=== PATIENT | female | born 1960 | race Caucasian/White ===

== ENCOUNTER 2020-08-28 21:00 | Emergency (ER) | payer OTHER ==
[2020-08-29 00:06] LABS: #Basophils 0.1 10x3/uL (0.0-0.2); #Eosinphils 0.6 10x3/uL (0.0-0.5); #Monocytes 1.2 10x3/uL (0.0-1.1); #Neutrophils 7.2 10x3/uL (1.5-8.4); %Basophils 0.6 % (0.0-2.0); %Eosinophils 5.8 % (0.0-6.0); %Lymphocytes 14.2 % (18.0-47.0); %Monocytes 11.2 % (0.0-10.0); %Neutrophils 66.7 % (40.0-75.0); Hemoglobin 12.8 g/dL (12.0-15.5); Mean Corpuscular HGB CONC 32.8 g/dL (32.0-36.0); Mean Corpuscular Hemoglobin 27.8 pg (27.0-33.0); Mean Corpuscular Volume 84.8 fl (81.6-98.3); Mean Platelet Volume 10.4 fl (7.4-10.4); Platelet Count 357 10x3/uL (150-450); RBC Distribution Width 13.8 % (11.5-14.5); White Blood Cell (WBC) Count 10.8 10x3/uL (3.5-10.5)
[2020-08-29 00:12] LABS: ALT (SGPT) 11 U/L (8-55); AST (SGOT) 23 U/L (5-34); Albumin 4.4 g/dL (3.4-4.8); Alkaline Phosphatase 160 U/L (40-110); Anion Gap 15 mmol/L (10-20); BUN (Urea Nitrogen) 19 mg/dL (9.8-20.1); Bilirubin, Total 0.4 mg/dL (0.2-1.2); Calc. Creatinine Clearance 0 mL/min (70-130); Calcium 9.7 mg/dL (7.8-10.44); Carbon Dioxide 26 mmol/L (23-31); Chloride 101 mmol/L (98-107); Globulin 3.6 g/dL (2.4-3.5); Glucose 100 mg/dL (80-115); Sodium 138 mmol/L (136-145)
[2020-08-29] MEDS ORDERED: Cefepime 2 GM VIAL ONE (00:47)
[2020-08-29] MEDS ORDERED: Ketorolac Tromethamine 30 MG/ML VIAL ONE (00:51)
== END 2020-08-29 01:32 | disposition home or self-care (01) ==
LOC: CSHERS 21:00
DX: L03.113 Cellulitis of right upper limb (principal); E03.9 Hypothyroidism, unspecified; K58.9 Irritable bowel syndrome, unspecified; F17.210 Nicotine dependence, cigarettes, uncomplicated; Z79.899 Other long term (current) drug therapy
CPT/HCPCS: 80053; 83605; 85025; 87040; 87086; 96365; 96375; J0692; J1885

== ENCOUNTER 2020-09-14 06:43 | Inpatient (IN) | payer OTHER ==
[2020-09-14] MEDS ORDERED: Cefepime 2 GM VIAL ONE (07:20)
[2020-09-14 08:31] LABS: #Monocytes 0.4 10x3/uL (0.0-1.1); #Neutrophils 4.9 10x3/uL (1.5-8.4); %Basophils 0.5 % (0.0-2.0); %Eosinophils 0.5 % (0.0-6.0); %Lymphocytes 10.4 % (18.0-47.0); %Monocytes 6.8 % (0.0-10.0); %Neutrophils 81.3 % (40.0-75.0); Hemoglobin 12.1 g/dL (12.0-15.5); Mean Corpuscular HGB CONC 32.3 g/dL (32.0-36.0); Mean Corpuscular Hemoglobin 27.8 pg (27.0-33.0); Mean Platelet Volume 11.5 fl (7.4-10.4); Platelet Count 255 10x3/uL (150-450); RBC Distribution Width 13.1 % (11.5-14.5); Red Blood Cell (RBC) Count 4.36 10x6/uL (3.90-5.03)
[2020-09-14 08:37] LABS: ALT (SGPT) 6 U/L (8-55); AST (SGOT) 17 U/L (5-34); Alkaline Phosphatase 126 U/L (40-110); Anion Gap 16 mmol/L (10-20); BUN (Urea Nitrogen) 19 mg/dL (9.8-20.1); Bilirubin, Total 0.5 mg/dL (0.2-1.2); Calc. Creatinine Clearance 0 mL/min (70-130); Calcium 9.8 mg/dL (7.8-10.44); Carbon Dioxide 24 mmol/L (23-31); Chloride 103 mmol/L (98-107); Globulin 3.7 g/dL (2.4-3.5); Glucose 115 mg/dL (80-115); Potassium 4.3 mmol/L (3.5-5.1); Protein, Total 7.7 g/dL (5.8-8.1); Sodium 139 mmol/L (136-145)
[2020-09-14] MEDS ORDERED: Lidocaine 1% w/Epinephrine 1:100K 20 ML VIAL ONE (08:37)
[2020-09-14] MEDS ORDERED: Morphine 4 MG/ML VIAL ONE (10:08)
[2020-09-14] MEDS ORDERED: Ondansetron PF 4 MG/2 ML Vial ONE (10:09)
[2020-09-14] MEDS ORDERED: Ondansetron PF 4 MG/2 ML Vial IVP PRN (10:44)
[2020-09-14] MEDS ORDERED: Acetaminophen 325 MG TAB PO PRN (10:44)
[2020-09-14] MEDS ORDERED: Loratadine 10 MG TAB PO PRN (10:44)
[2020-09-14] MEDS ORDERED: Calcium Carbonate 500 MG ChewTAB PO PRN (10:44)
[2020-09-14] MEDS ORDERED: Guaifenesin DM 100-10/5 ML UDCUP PO PRN (10:44)
[2020-09-14] MEDS ORDERED: Loperamide HCl 2 MG CAP PO PRN (10:44)
[2020-09-14] MEDS ORDERED: Sodium Chloride 0.65% Nasal 44 ML BOT EA NARE PRN (10:44)
[2020-09-14] MEDS ORDERED: Bisacodyl 10 MG SUPP PR PRN (10:44)
[2020-09-14] MEDS ORDERED: Senokot S 8.6-50 MG TAB PO PRN (10:44)
[2020-09-14] MEDS ORDERED: hydrALAZINE 20 MG/ML VIAL SLOW IVP PRN (10:44)
[2020-09-14] MEDS ORDERED: Cepastat Lozenges 1 LOZ PO PRN (10:44)
[2020-09-14 12:23] VITALS: BMI 28.3
[2020-09-14] MEDS: HYDROcodone/Acetaminophen 5/325 mg Tablet PO PRN ×3 (12:31→22:30)
[2020-09-14] MEDS: cefTRIAXone\\ROCEPHIN 1 GM in Sodium Chloride 0.9% 100 ML IVPB SCH (14:44)
[2020-09-14] MEDS ORDERED: Vancomycin HCl 500 MG in Sodium Chloride 0.9% 100 ML IVPB SCH (15:00)
[2020-09-14] MEDS: Ondansetron ODT 4 MG TAB PO PRN ×2 (18:12→22:30)
[2020-09-14 19:18] LABS: SARS-CoV-2 PCR by NAA Not Detected (NotDetected)
[2020-09-14] MEDS: Famotidine 20 MG TAB PO SCH (20:22)
[2020-09-14] MEDS: Zolpidem Tartrate 5 MG TAB PO PRN (23:37)
[2020-09-15] MEDS: HYDROcodone/Acetaminophen 5/325 mg Tablet PO PRN ×2 (04:04→13:49)
[2020-09-15 05:23] LABS: Anion Gap 13 mmol/L (10-20); BUN (Urea Nitrogen) 19 mg/dL (9.8-20.1); CRP (Inflammatory) Less than 0.50 mg/dL (= or < 0.5); Calc. Creatinine Clearance 59 mL/min (70-130); Carbon Dioxide 29 mmol/L (23-31); Chloride 103 mmol/L (98-107); Glucose 88 mg/dL (80-115); Potassium 4.5 mmol/L (3.5-5.1); Sodium 140 mmol/L (136-145)
[2020-09-15 05:40] LABS: #Eosinphils 0.2 10x3/uL (0.0-0.5); #Monocytes 0.9 10x3/uL (0.0-1.1); #Neutrophils 7.5 10x3/uL (1.5-8.4); %Basophils 0.4 % (0.0-2.0); %Eosinophils 1.6 % (0.0-6.0); %Lymphocytes 8.6 % (18.0-47.0); %Monocytes 9.7 % (0.0-10.0); %Neutrophils 79.4 % (40.0-75.0); Hemoglobin 11.4 g/dL (12.0-15.5); Mean Corpuscular HGB CONC 32.1 g/dL (32.0-36.0); Mean Corpuscular Volume 87.2 fl (81.6-98.3); Mean Platelet Volume 10.3 fl (7.4-10.4); Platelet Count 367 10x3/uL (150-450); RBC Distribution Width 13.1 % (11.5-14.5); Red Blood Cell (RBC) Count 4.07 10x6/uL (3.90-5.03); White Blood Cell (WBC) Count 9.4 10x3/uL (3.5-10.5)
[2020-09-15] MEDS ORDERED: traMADol HCl 50 MG TAB PO PRN (08:48)
[2020-09-15] MEDS ORDERED: hydrOXYzine 25 MG TAB PO PRN (08:48)
[2020-09-15] MEDS ORDERED: Cyclobenzaprine 10 MG TAB PO PRN (08:48)
[2020-09-15] MEDS ORDERED: Fluticasone Propionate Nasal Spray 16 gm Bottle NASAL SCH (10:00)
[2020-09-15] MEDS ORDERED: busPIRone HCl 15 MG TAB PO SCH (10:00)
[2020-09-15] MEDS ORDERED: FLUoxetine HCl 20 MG CAP PO SCH (10:00)
[2020-09-15] MEDS: Famotidine 20 MG TAB PO SCH ×2 (10:03→20:05)
[2020-09-15] MEDS: Ondansetron ODT 4 MG TAB PO PRN (10:04)
[2020-09-15] MEDS: Enoxaparin Sodium 40 MG/0.4 ML SYRINGE SC SCH (10:05)
[2020-09-15] MEDS: Vancomycin HCl 1 GM in Sodium Chloride 0.9% 250 ML 250 ML IVPB SCH (10:05)
[2020-09-15] MEDS: Morphine 4 MG/ML VIAL SLOW IVP PRN ×2 (10:06→17:28)
[2020-09-15] MEDS: cefTRIAXone\\ROCEPHIN 1 GM in Sodium Chloride 0.9% 100 ML IVPB SCH (12:35)
[2020-09-15] MEDS: Prazosin HCl 1 MG CAP PO SCH (20:06)
[2020-09-15] MEDS: Zolpidem Tartrate 5 MG TAB PO PRN (20:06)
[2020-09-15] MEDS: busPIRone HCl 15 MG TAB PO SCH (20:06)
[2020-09-15] MEDS: Bupropion 150 MG SR TAB PO SCH (20:06)
[2020-09-16] MEDS: Morphine 4 MG/ML VIAL SLOW IVP PRN ×5 (02:48→22:54)
[2020-09-16] MEDS: Vancomycin HCl 1 GM in Sodium Chloride 0.9% 250 ML 250 ML IVPB SCH ×2 (03:18→20:44)
[2020-09-16] MEDS: Famotidine 20 MG TAB PO SCH ×2 (08:33→20:44)
[2020-09-16] MEDS: busPIRone HCl 15 MG TAB PO SCH ×2 (08:33→20:43)
[2020-09-16] MEDS: Enoxaparin Sodium 40 MG/0.4 ML SYRINGE SC SCH (08:33)
[2020-09-16] MEDS: Fluticasone Propionate Nasal Spray 16 gm Bottle NASAL SCH (08:34)
[2020-09-16] MEDS: FLUoxetine HCl 20 MG CAP PO SCH (08:34)
[2020-09-16] MEDS: cefTRIAXone\\ROCEPHIN 1 GM in Sodium Chloride 0.9% 100 ML IVPB SCH (11:44)
[2020-09-16] MEDS: Prazosin HCl 1 MG CAP PO SCH (20:43)
[2020-09-16] MEDS: Bupropion 150 MG SR TAB PO SCH (20:43)
[2020-09-16] MEDS: Zolpidem Tartrate 5 MG TAB PO PRN (20:43)
[2020-09-17] MEDS: Morphine 4 MG/ML VIAL SLOW IVP PRN ×2 (05:11→09:00)
[2020-09-17] MEDS: Fluticasone Propionate Nasal Spray 16 gm Bottle NASAL SCH (08:46)
[2020-09-17] MEDS: Enoxaparin Sodium 40 MG/0.4 ML SYRINGE SC SCH (08:46)
[2020-09-17] MEDS: FLUoxetine HCl 20 MG CAP PO SCH (08:46)
[2020-09-17] MEDS: Famotidine 20 MG TAB PO SCH (10:52)
[2020-09-17] MEDS: busPIRone HCl 15 MG TAB PO SCH (10:53)
[2020-09-17 12:25] VITALS: BP 123/71; TEMP 98.2
== END 2020-09-17 12:41 | disposition home or self-care (01) | DRG 558 ==
LOC: CSHERS 06:43 → CSHTELE 09:57
PROVIDERS: ADMIT Internal Medicine; ATTEND Internal Medicine
DX: M70.21 Olecranon bursitis, right elbow (principal); Z20.822 Contact with and (suspected) exposure to COVID-19; E03.9 Hypothyroidism, unspecified; K58.9 Irritable bowel syndrome, unspecified; Z90.710 Acquired absence of both cervix and uterus; F17.210 Nicotine dependence, cigarettes, uncomplicated; Z78.9 Other specified health status; N18.31 Chronic kidney disease, stage 3a; F41.9 Anxiety disorder, unspecified; F32.9 Major depressive disorder, single episode, unspecified; Z79.899 Other long term (current) drug therapy
CPT/HCPCS: 36415; 80048; 80053; 83605; 85025; 85652; 86140; 87070; 87205; 87635; 94760; 96365; 96375; J0690; J0692; J0696; J1650; J2270; J2405; J3370; J3490; J7050; Q0162; U0003; U0005

== ENCOUNTER 2021-05-25 11:12 | Emergency (ER) | payer OTHER ==
[2021-05-25] MEDS ORDERED: Ketorolac Tromethamine 30 MG/ML VIAL ONE (12:21)
[2021-05-25] MEDS ORDERED: Morphine 4 MG/ML VIAL ONE (13:39)
== END 2021-05-25 14:03 | disposition home or self-care (01) ==
LOC: CSHERS 11:12
DX: S92.351A Displaced fracture of fifth metatarsal bone, right foot, initial encounter for closed fracture (principal); S09.90XA Unspecified injury of head, initial encounter; W22.8XXA Striking against or struck by other objects, initial encounter; E03.9 Hypothyroidism, unspecified; F17.210 Nicotine dependence, cigarettes, uncomplicated
CPT/HCPCS: 70450; 96372; J1885; J2270

== ENCOUNTER 2022-04-21 08:29 | Emergency (ER) | payer OTHER ==
[2022-04-21] MEDS ORDERED: Ketorolac Tromethamine 30 MG/ML VIAL ONE (09:25)
[2022-04-21] MEDS ORDERED: diphenhydrAMINE 25 MG CAP ONE (10:33)
== END 2022-04-21 11:35 | disposition home or self-care (01) ==
LOC: CSHERS 08:29
DX: M25.511 Pain in right shoulder (principal); E03.9 Hypothyroidism, unspecified; F17.210 Nicotine dependence, cigarettes, uncomplicated
CPT/HCPCS: 93005; 96372; J1885

== ENCOUNTER 2022-09-13 08:55 | Emergency (ER) | payer OTHER ==
[2022-09-13] MEDS ORDERED: Morphine 4 MG/ML VIAL ONE (11:06)
[2022-09-13] MEDS ORDERED: Ketorolac Tromethamine 30 MG/ML VIAL ONE (11:06)
== END 2022-09-13 11:20 | disposition home or self-care (01) ==
LOC: CSHERS 08:55
DX: B02.9 Zoster without complications (principal); E03.9 Hypothyroidism, unspecified
CPT/HCPCS: J1885; J2270

== ENCOUNTER 2022-09-14 03:55 | Emergency (ER) | payer OTHER ==
[2022-09-14] MEDS ORDERED: predniSONE 20 MG TAB ONE (04:27)
[2022-09-14] MEDS ORDERED: Morphine 10 MG/ML VIAL ONE (04:28)
== END 2022-09-14 04:49 | disposition home or self-care (01) ==
LOC: CSHERS 03:55
DX: B02.9 Zoster without complications (principal); E03.9 Hypothyroidism, unspecified; F17.210 Nicotine dependence, cigarettes, uncomplicated; Z79.899 Other long term (current) drug therapy
CPT/HCPCS: 96372; 99282; J1885; J2270; J7512

== ENCOUNTER 2023-02-23 13:18 | Emergency (ER) | payer OTHER ==
[2023-02-23 15:04] LABS: #Basophils 0.1 10x3/uL (0.0-0.2); #Eosinphils 0.1 10x3/uL (0.0-0.5); #Neutrophils 6.6 10x3/uL (1.5-8.4); %Basophils 0.7 % (0.0-2.0); %Eosinophils 1.5 % (0.0-6.0); %Lymphocytes 9.9 % (18.0-47.0); %Monocytes 10.7 % (0.0-10.0); %Neutrophils 73.7 % (40.0-75.0); Hematocrit 36.1 % (34.9-44.5); Mean Corpuscular HGB CONC 33.2 g/dL (32.0-36.0); Mean Corpuscular Volume 90.3 fl (81.6-98.3); Mean Platelet Volume 10.8 fl (7.4-10.4); Platelet Count 311 10x3/uL (150-450); RBC Distribution Width 14.4 % (11.5-14.5); White Blood Cell (WBC) Count 8.9 10x3/uL (3.5-10.5)
[2023-02-23] MEDS ORDERED: Ketorolac Tromethamine 30 MG/ML VIAL ONE (15:12)
[2023-02-23] MEDS ORDERED: guaiFENesin ER 600 MG TAB PO SCH (15:15)
[2023-02-23] MEDS ORDERED: Pseudoephedrine HCl 30 MG TAB PO SCH (15:15)
[2023-02-23 15:17] LABS: SARS-CoV-2 NAA Rapid Test Not Detected (NotDetected)
[2023-02-23 15:21] LABS: ALT (SGPT) Less than 7 U/L (8-55); AST (SGOT) 20 U/L (5-34); Albumin 4.2 g/dL (3.4-4.8); Alkaline Phosphatase 131 U/L (40-110); Anion Gap 14 mmol/L (10-20); BUN (Urea Nitrogen) 13 mg/dL (9.8-20.1); Bilirubin, Total 0.5 mg/dL (0.2-1.2); Calc. Creatinine Clearance 0 mL/min (70-130); Calcium 9.5 mg/dL (7.8-10.44); Carbon Dioxide 26 mmol/L (23-31); Chloride 104 mmol/L (98-107); Estimated GFR 70; Globulin 3.5 g/dL (2.4-3.5); Glucose 95 mg/dL (80-115); Potassium 3.9 mmol/L (3.5-5.1); Protein, Total 7.7 g/dL (5.8-8.1); Sodium 140 mmol/L (136-145)
[2023-02-23] MEDS ORDERED: cloNIDine 0.1 MG TAB ONE (16:21)
== END 2023-02-23 16:51 | disposition home or self-care (01) ==
LOC: CSHERS 13:18
DX: J32.9 Chronic sinusitis, unspecified (principal); I10 Essential (primary) hypertension; M79.10 Myalgia, unspecified site; E03.9 Hypothyroidism, unspecified; F17.210 Nicotine dependence, cigarettes, uncomplicated; Z20.822 Contact with and (suspected) exposure to COVID-19
CPT/HCPCS: 71045; 80053; 85025; 93005; 96374; J1885